=== PATIENT | male | born 1995 | race Two or more races ===

== ENCOUNTER 2017-12-23 19:31 | Emergency (ER) | payer MEDICAID ==
[~2017-12-23] VITALS: Ht 180.3 cm; Wt 71.0 kg
[2017-12-24 04:08] LABS: CLARITY URINE CLEAR (CLEAR); COLOR URINE YELLOW (YELLOW); KETONES URINE 2+ (NEGATIVE); LEUKOCYTE ESTERASE URINE 3+ (NEGATIVE); NITRITE URINE NEGATIVE (NEGATIVE); OCCULT BLOOD URINE 1+ (NEGATIVE); PROTEIN URINE TRACE (NEGATIVE); SPECIFIC GRAVITY URINE 1.024 (1.005-1.030)
[2017-12-24] MEDS ORDERED: LIDOCAINE HCL 1% 20ML VIAL (Pyxis) INJ INFIL ONE (05:00)
[2017-12-24] MEDS ORDERED: CEFTRIAXONE SODIUM 250 MG/VIAL IM ONE (05:00)
[2017-12-24] MEDS ORDERED: AZITHROMYCIN 500 MG TABLET PO ONE (05:00)
[2017-12-24 05:30] VITALS: BP 106/68
== END 2017-12-24 06:00 | disposition home or self-care (01) ==
LOC: ER 19:31
DX: N39.0 Urinary tract infection, site not specified (principal); F90.9 Attention-deficit hyperactivity disorder, unspecified type; F17.200 Nicotine dependence, unspecified, uncomplicated
CPT/HCPCS: 81003; 87086; 96372; 99284; J0696; J3490